=== PATIENT | female | born 1950 | race Caucasian/White ===

== ENCOUNTER → 2016-12-02 | Outpatient (CLI) | payer OTHER ==
[~2016-12-02] VITALS: Ht 154.9 cm; Wt 82.4 kg
[~2016-12-02] MED LIST: IMITREX 25 MG T25 MG PO; LAMISIL250 MG PO; LISINOPRIL-HCT1 EAC2 PO; LISINOPRIL10 MG PO; MOBIC7.5 MG PO; PRAVACHOL20 MG PO; PRAVACHOL40 MG PO; PROGESTERONE100 MG PO; PROGESTERONE200 MG PO
--- NOTE | ~2016-12-02 | HPC ---
[facility] [place] [address] PAIN MANAGEMENT CONSULTATION Name: JAGDISHMAK M Room #: REG [facility] Andrei#: [id number] Admission: 12/02/16 Attend Phys: Rafael Garcia DO Discharge: Date of : 48 Report #: [id number] THIS REPORT FOR: //name// CC: Nick Garcia HISTORY OF PRESENT ILLNESS: The patient is a 66-year-old female, prior seen in the pain clinic for symptomatic cervical radiculopathy. She had #3 cervical epidural injection on 09/02/2016, (#2 on 06/25/2016, and #1 on 05/27/2016). She returns to pain clinic today, noting she has new pain on the left side, neck, shoulder and arm. Chronically, she has had right cervical radicular symptoms. Again, she notes the prior series of epidural injections afforded greater than 70% relief for greater than 2 months. She had significant improvement in cervical range of motion and arm pain. She returns to pain clinic today noting pain is 7/10, exacerbated with looking up and using her right arm. She is using medication and sitting in a hot tub with some efficacy. Medications including meloxicam for anti-inflammation and pain. PHYSICAL EXAMINATION: GENERAL: She is a 66-year-old female, BMI is 34.3 kg/ m. sq. She is having some ongoing issues with headaches, posterior occipital radiating around to the front. VITAL SIGNS: Stable, blood pressure 147/89, pulse 72, respirations 16. EXTREMITIES: Positive Lhermitte's with radiation into the right shoulder and arm and a little bit into the left side. Right deltoid and triceps strength is 3/5, all else is 4/5. Slight decreased right deltoid and triceps reflex. DIAGNOSTIC DATA: We reviewed her MRI findings from 05/05/2016, noting C5-C6 to have an 8 mm central stenosis with uncovertebral hypertrophy, right greater than left. C6-C7 notes similarly 8 mm stenosis with bilateral facet arthropathy. ASSESSMENT: Symptomatic cervical radiculopathy with a component of acute/chronic headache. RECOMMENDATIONS: 1. We will seek authorization for repeat cervical epidural injection under fluoroscopy. It has been greater than 6 months since her prior series started. 2. We will offer the patient prescription for Imitrex 25 mg 1 tablet onset of headache, may repeat in 2 hours. We talked about ongoing headache concerns, risks of Imitrex with cardiac disease, though she has none. She does have a history of hypertension for which she uses lisinopril and dyslipidemia for which she takes Pravachol. The patient was seen for prolonged visit from 13:20-13:45. Greater than 50% of the time spent reviewing medical issues, prior intervention and new issue of ongoing headache which has been chronic, but a little worse recently. No specific photophobia. No nausea, vomiting at this time. No signs of increased [address] [address] PAIN MANAGEMENT CONSULTATION Name: MAK DUBON Room #: REG [facility] Forbes#: [id number] Admission: 12/02/16 Attend Phys: Rafael Garcia DO Discharge: Date of : 48 Report #: [id number] intracranial pressure. Discharged in good stable condition. We will seek authorization for cervical epidural injection under fluoroscopy. <ELECTRONICALLY SIGNED> By: Rafael Garica DO 12/08/16 1031 1634 0515 Rafael Garcia DO /nt
[2016-12-02 13:09] VITALS: BP 147/89
== END | disposition home or self-care (01) ==
LOC: PAIN 07:30
DX: M54.12 Radiculopathy, cervical region (principal); G89.29 Other chronic pain; R51 Headache

== ENCOUNTER → 2016-12-13 | Outpatient (CLI) | payer OTHER ==
[~2016-12-13] VITALS: Ht 154.9 cm; Wt 83.1 kg
--- NOTE | ~2016-12-13 | HPC ---
[facility] [place] [address] PAIN MANAGEMENT CONSULTATION Name: MAK DUBON Antonieta [id number] Admission: 12/13/16 Attend Phys: Rafael Garcia DO Discharge: Date of : 48 Report #: [id number] THIS REPORT FOR: //name// CC: Nick Garcia AMENDED REPORT - SEE BELOW DATE OF SERVICE: 12/13/2016 The patient is a 66-year-old female seen on 12/02/2016 with diagnosis of symptomatic cervical radiculopathy, sought authorization for cervical epidural injection under fluoroscopy today. Returns to the pain clinic today noting pain continues to be problematic in neck, right shoulder and arm, rating as 7/10. Vital signs show modest hypertension 154/92, pulse 75, respirations 18. She wished to proceed with the injection. We discussed. ASSESSMENT: Symptomatic cervical radiculopathy. PROCEDURE: Cervical epidural injection under fluoroscopy. PROCEDURE NOTE: After written and informed consent was obtained including risk of dural puncture, spinal cord trauma, paralysis and increased pain, the patient was taken to the fluoroscopy suite and placed in the prone position, with appropriate abdominal bolstering, neck was flexed, palms under the thighs. Skin was prepped with ChloraPrep. Sterile draping was applied. Skin wheal with 1% Xylocaine was raised. A 22-gauge 3-1/2 inch epidural Tuohy needle was placed via a midline approach at the C7-T1 interspace, advanced under biplanar fluoroscopy using continuous loss of resistance. With appropriate loss of resistance at the expected depth on lateral view, the glass loss of resistance syringe was disconnected. A low volume extension tubing was connected to the needle and a 5 mL syringe. Negative aspiration for cerebrospinal fluid or blood was noted. A 1 mL of Omnipaque was injected which showed spread within the epidural space on biplanar fluoroscopy. This was followed with 80 mg of triamcinolone plus 1 mL of 1.5% preservative Xylocaine. Needle was withdrawn to the interspinous ligament, 0.5 mL of Xylocaine was used to flush the needle. The needle was then completely withdrawn. The area was cleansed. Band-Aid was applied. The patient was allowed to move off the procedure table and ambulated to the recovery room, monitored for an appropriate period of time, discharged in good and stable condition. The patient was discharged in good and stable condition. Follow up in 3 weeks [place] [address] PAIN MANAGEMENT CONSULTATION Name: JAGDISHMAK Fung Room #: REG [facility]#: [id number] Admission: 12/13/16 Attend Phys: Rafael Garcia DO Discharge: Date of : 48 Report #: [id number] AMENDMENT (DEMOGRAPHIC ERROR) Report originally electronically signed: 12/15/16 <ELECTRONICALLY SIGNED> By: Rafael Garcia DO 12/31/16 0811 1341 2209 Rafael Garcia DO /bethel
[2016-12-13 10:07] VITALS: BP 154/92
== END | disposition home or self-care (01) ==
LOC: PAIN 07:22
DX: M54.12 Radiculopathy, cervical region (principal)

== ENCOUNTER → 2017-08-08 | Outpatient (CLI) | payer OTHER ==
[~2017-08-08] VITALS: Ht 154.9 cm; Wt 81.6 kg
[~2017-08-08] MED LIST changes: +COZAAR 50 MG TA50 M2 PO; +HYDROCHLOROTHIA25 M2 PO; +NEURONTIN 300300 M1 PO
--- NOTE | ~2017-08-08 | HPC ---
[facility] [place] [address] PAIN MANAGEMENT CONSULTATION Name: DUBONMAK M [facility] [id number] Admission: 08/08/17 Attend Phys: Rafael Garcia DO Discharge: Date of : 48 Report #: [id number] THIS REPORT FOR: //name// CC: Nick Garcia PROCEDURE: Left L3-L4 transforaminal epidural injection under fluoroscopy. INDICATION: Lumbar radicular pain, left L3-L4 distribution. The patient was referred from her neurosurgeon, Dr. Howard for a request for specific left L3-L4 transforaminal epidural injection today. We will proceed with left L4-L5 transforaminal epidural injection next week. We will evaluate efficacy of overall after both injections. PROCEDURE NOTE: Left L3-L4 transforaminal epidural injection under fluoroscopy. DESCRIPTION OF PROCEDURE NOTE: After both written and informed consent was obtained including risk of spinal cord damage, infection, increased pain and paralysis, the patient agreed to proceed. The patient was taken to the fluoroscopy suite, placed in a prone position with appropriate abdominal bolstering. After sterile prep with ChloraPrep and sterile drape, a skin wheal with 1% Xylocaine was raised. A 22 gauge 4-1/2 inch epidural Tuohy needle was inserted. From an oblique approach into the posterior-superior aspect of the left L3-L4 neural foramen with continuous pressure on the glass syringe plunger for loss of resistance. Glass syringe was filled with 2 cc of 0.1 Xylocaine. The glass loss of resistance syringe was removed. A low volume extension tubing was connected, negative aspiration was accomplished for cerebrospinal fluid or blood. 1 mL of Omnipaque was injected which showed spread both within the epidural space and laterally along the nerve root. This was followed with 80 mg of triamcinolone plus 1 mL of 1.5% preservative-free Xylocaine. Needle was partially withdrawn, 0.5 mL of Xylocaine was injected to clear the needle and the needle was removed. The area was cleansed, band-aid was applied. The patient was allowed to ambulate to the recovery room, discharged in good and stable condition. The patient was monitored for an appropriate period of time and discharged in good and stable condition, noting pain, which is a 5 on admission, was absent on discharge. Again, may have had some spread of local anesthetic overall. We will reevaluate at next visit to ascertain duration of efficacy and steroid effect. If symptoms continue, we will plan on moving forward with a right L4-L5 transforaminal epidural injection at that time. We will plan to move forward with right L4-L5 transforaminal epidural injection, again request from [address] [address] PAIN MANAGEMENT CONSULTATION Name: MAK DUBON Room #: REG [facility] Forbes#: [id number] Admission: 08/08/17 Attend Phys: Rafael Garcia DO Discharge: Date of : 48 Report #: [id number] Neurosurgery, was for consideration for left L3-L4 and L4-L5 transforaminal epidural injections. <ELECTRONICALLY SIGNED> By: Rafael Garcia DO 08/10/17 0811 1228 0024 Rafael Garcia DO /nt
[2017-08-08 10:06] VITALS: BP 144/82
== END ==
LOC: PAIN 07:22
DX: M54.16 Radiculopathy, lumbar region (principal); I10 Essential (primary) hypertension; Z88.2 Allergy status to sulfonamides; Z79.899 Other long term (current) drug therapy; Z72.89 Other problems related to lifestyle

== ENCOUNTER → 2017-08-25 | Outpatient (CLI) | payer OTHER ==
[~2017-08-25] VITALS: Ht 154.9 cm; Wt 81.4 kg
--- NOTE | ~2017-08-25 | HPC ---
[facility] [place] [address] PAIN MANAGEMENT CONSULTATION Name: MAK DUBON Antonieta Room #: REG [facility].#: [id number] Admission: 08/25/17 Attend Phys: Rafael Garcia DO Discharge: Date of : 48 Report #: [id number] THIS REPORT FOR: //name// CC: Nick Garcia The patient is a pleasant 67-year-old female being treated for symptomatic lumbar radiculopathy, prior history of cervical radiculopathy. She had seen a neurosurgeon, Dr. Howard at [facility]. He requested we proceed with left L3-L4 and left L4-L5 transforaminal epidural injections. The patient had left L3-L4 transforaminal epidural injection on 08/08/2017. She notes incremental improvement of baseline pain with pain continues. It is a little more in L4 radicular pattern, lateral aspect of that left leg. To her credit, she has started doing Pilates. She is doing this about 5 times a week. PHYSICAL EXAMINATION: Otherwise unchanged from last visit, subjective pain score is 2-3 on a VAS, vital signs stable as noted in the EMR. PROCEDURE NOTE: Transforaminal epidural injection at L4-L5. PROCEDURE: Transforaminal lumbar epidural injection under fluoroscopy. After both written and informed consent was obtained including risk of spinal cord damage, infection, increased pain and paralysis, the patient agreed to proceed. The patient was taken to the fluoroscopy suite, placed in a prone position with appropriate abdominal bolstering. After sterile prep with ChloraPrep and sterile drape, a skin wheal with 1% Xylocaine was raised. A 22 gauge 4-1/2 inch epidural Tuohy needle was inserted. From an oblique approach into the posterior-superior aspect of the left L4-L5 neural foramen with continuous pressure on the glass syringe plunger for loss of resistance. Glass syringe was filled with 2 cc of 0.1 Xylocaine. The glass loss of resistance syringe was removed. A low volume extension tubing was connected, negative aspiration was accomplished for cerebrospinal fluid or blood. 1 mL of Omnipaque was injected which showed spread both within the epidural space and laterally along the nerve root. This was followed with 80 mg of triamcinolone plus 1 mL of 1.5% preservative-free Xylocaine. Needle was partially withdrawn, 0.5 mL of Xylocaine was injected to clear the needle and the needle was removed. The area was cleansed, band-aid was applied. The patient was allowed to ambulate to the recovery room, discharged in good and stable condition. <ELECTRONICALLY SIGNED> By: Rafael Garcia DO 08/26/17 0819 1216 0647 Rafael Garcia DO /nt
[2017-08-25 10:37] VITALS: BP 128/77
== END | disposition home or self-care (01) ==
LOC: PAIN 06:31
DX: M54.16 Radiculopathy, lumbar region (principal); M54.12 Radiculopathy, cervical region

== ENCOUNTER → 2019-06-12 | Outpatient (CLI) | payer OTHER ==
[~2019-06-12] VITALS: Ht 154.9 cm; Wt 73.9 kg
[~2019-06-12] MED LIST changes: +EXCEDRIN CAPLE1 EACH PO; +VITAMIN D5000 UNIT PO
--- NOTE | ~2019-06-12 | HPC ---
[facility] [place] [address] PAIN MANAGEMENT CONSULTATION Name: MAK DUBON Room #: REG [facility].#: [id number] Admission: 06/12/19 ������������������ Attend Phys: Markus Garcia DO Discharge: ������������������ Date of : 48 Report #: [id number] THIS REPORT FOR: //name// CC: Nick Garcia DATE OF SERVICE: 06/12/2019 CHIEF COMPLAINT: Right low back pain, right buttock and posterolateral thigh pain, radiating all the way to the ankle. HISTORY OF PRESENT ILLNESS: As you know, the patient is a very pleasant 69-year-old female who has returned today in followup visit, having recurrence of low back pain with now right lower extremity pain with paresthesias. She apparently has seen Neurosurgery at [facility], Dr. Howard, for possible surgical options. It was determined that the patient should trial conservative medication management until which time her symptoms do not improve. As you are aware, the patient had an MRI of the lumbar spine obtained 04/29/2017 which showed broad-based central disk extrusion of the L5-S1 level with caudal migration and severe central canal stenosis noted at the L4-L5 level. This is due to facet arthropathy and mild disk bulging. The AP canal diameter at that point was 0.6 cm. She is now experiencing right buttock, posterolateral thigh pain, radiating all the way down to the foot. She denies injury or trauma. She returns today, stating her pain is aching, constant numbness and tingling, exacerbated with activity, improves with medications. She is placing pain anywhere from 8-10/10. ALLERGIES: SULFA. CURRENT MEDICATIONS: Pravastatin 20 mg once a day, progesterone micronized 200 mg once a day, meloxicam 7.5 mg b.i.d., losartan 50 mg per day, hydrochlorothiazide 25 mg per day, Excedrin caplets p.r.n., vitamin D3 5000 units per day. SOCIAL HISTORY: The patient denies tobacco, alcohol, IV or illicit drug use. She is retired. She is accompanied by her present in room today. IMAGING: No new imaging available. PQRS: The patient has known lumbar osteoarthritis. No rheumatoid arthritis. She is placing pain impact score anywhere from 8-10/10. She is a fall risk, but has not had a fall in the last 3 months, but states she is imbalanced at times. She does not use any type of ambulatory device. She is not on blood thinners. She has history of hypertension. She is not on any opioids. She has a low risk for opioid addiction. Pain impact tool 60/70, severe, near complete [address] [address] PAIN MANAGEMENT CONSULTATION Name: DUBONMAK Room #: REG [facility].#: [id number] Admission: 06/12/19 ������������������ Attend Phys: Markus Garcia DO Discharge: ������������������ Date of : 48 Report #: [id number] interference of daily activities secondary to pain. PHYSICAL EXAMINATION: VITAL SIGNS: Blood pressure 140/84, pulse 67, respiratory rate 16 and unlabored, the patient 99% on room air. Height 5 feet 1 inch tall, weight 163 pounds, BMI calculated 30.8. GENERAL: Well-developed, well-nourished, well-hydrated 69-year-old female appearing stated age, pain is rated at 8-10/10. HEENT: Normocephalic, atraumatic. Pupils equal, round, reactive to light. Extraocular muscles are intact. Sclerae nonicteric without injection. NEUROLOGIC: Cranial nerves 2-12 grossly intact. Speech fluent. The patient deemed a good historian. LUNGS: Clear; no wheeze, rhonchi or rales. CARDIOVASCULAR: Regular. No appreciable gallop, no rub. ABDOMEN: Soft, nontender, nondistended, normoactive bowel sounds. EXTREMITIES: Show no clubbing, no cyanosis, and no edema. MUSCULOSKELETAL: Lower extremity strength appears equal and symmetrical, 5/5. There is slight giveaway strength noted on the right when compared to left, with hip flexion, knee extension causing buttock and posterolateral thigh pain, radiating all the way to the ankle. Seated straight leg raising positive right. Supine straight leg raising positive right. Ankle clonus negative. Babinski is negative. Muscle bulk and tone is symmetrical in comparing left lower extremity to right. Intact to light touch from L1 through S2 dermatomes. Palpatory tenderness over the paraspinal musculature of lower lumbar spine. No spinous process tenderness. ASSESSMENT: 1. Symptomatic lumbar radiculopathy. 2. Severe spinal stenosis of lumbar spine. 3. Displacement of lumbar intervertebral disk with radiculopathy. 4. Lumbosacral spondylosis with radiculopathy. 5. Neural foraminal stenosis of lumbar spine. 6. Facet arthropathy of the lumbar spine. 7. Chronic intractable pain. PLAN: 1. The patient returns today in followup visit with continued low back pain, now with right lower extremity pain with paresthesias. When the patient was initially seen by my partner, Dr. Rafael Garica, she was complaining mainly of left lower extremity symptoms with intermittent right lower extremity pain. She is now noticing near complete resolution of left lower extremity symptoms, but the right lower extremity symptoms now at a level of 8-10/10. Her findings do correlate with the L4-L5 central canal stenosis given the bilateral nature of symptoms. We discussed with the patient options for treatment for spinal stenosis of the lumbar spine that is severe in nature. The following was discussed with the patient today. [facility] [address] [place] [address] PAIN MANAGEMENT CONSULTATION Name: MAK DUBON Room #: REG [facility] Forbes#: [id number] Admission: 06/12/19 ������������������ Attend Phys: Markus Garcia DO Discharge: ������������������ Date of : 48 Report #: [id number] We discussed physical therapy, stretching exercise, core strengthening as a treatment option. We discussed medication management, adding neuropathic pain medications and a consistent nonsteroidal anti-inflammatory. We discussed epidural injections under fluoroscopic guidance for which the patient was initially referred to our services. We discussed spinal cord stimulator as a temporizing measure to provide pain relief prior to surgical options and finally surgical decompression of the L4-L5 level and decompressing of the central canal. After reviewing the risks and benefits of all proposed treatment options, the patient chose to move forward with lumbar epidural injection under fluoroscopic guidance. The patient was advised that third libertarian payer restrictions require that authorization be obtained before the patient could undergo a lumbar epidural injection. Authorization could take anywhere from 4-7 working days. We will begin this process immediately and contact the patient once this has been completed, have her return to undergo the first in a series of lumbar epidural injections to address this right lower extremity pain and paresthesias. 2. I have provided the patient with samples of Lyrica 75 mg dose to provide analgesic benefit. I have given the patient 75 mg to begin tonight. If no side effects of sleepiness, disorientation, confusion or mental slowing, she can then take 75 mg b.i.d. This will only be used for a short period of time as we await the approval for the epidural injection. If the patient needs further treatment for medication management, she can follow up with her PCP. 3. We will see the patient back in followup visit once we have achieved authorization for the patient to undergo first in series of lumbar epidural injections to address this lumbar radicular symptoms. We will keep the patient apprised of our progress in obtaining this authorization. 4. We wish to thank Dr. Gaona for the re-referral of the patient to our clinic. We will keep you apprised of her response to treatment as we address lumbar radicular symptoms. Again, we wish to thank you for the opportunity to see the patient in consultation. ��������������������������������������������� ���������������������������������������� By: ��������������������������������������������� 0823 0908 Markus Garcia DO /nt
[2019-06-12 12:59] VITALS: BP 148/84
--- NOTE | 2019-06-12 13:03 | NUR ---
Pain Clinic Assessment: 1. History of Osteoarthritis: NO History of Rheumatoid Arthritis: NO 2. Height: 5 ft. 1 in. 154.9 cm. Weight: 163.0 lb. oz. 73.936 kg. Patient's BMI: 30.8 3. Vital Signs: BP: 148/84 Pulse: 67 Resp: 16 Temp: 02 Sat: 99 ECG Mon: 4. Pain Intensity: 8-10 5. Fall Risk: Dizziness: N Needs help standing or walking: Y Fallen in the last 3 months: N Fall risk comments: 6. Patient on Blood Thinner: None 7. History of Hypertension: Y 8. Opioid Therapy greater than 6 weeks: N Opiate Contract Signed: 9. Risk Assessment Tool Provided: 10. Functional Assessment Tool: 11. Recreational Drug Use: Never Drug Type: Tobacco Use: Never Smoker Tobacco Type: Amount or Packs/day: How Many Years: Alcohol Use: Yes Frequency: Daily Quant: 1-2
== END ==
LOC: PAIN 12:06
DX: M47.27 Other spondylosis with radiculopathy, lumbosacral region (principal); M48.062 Spinal stenosis, lumbar region with neurogenic claudication; M51.16 Intervertebral disc disorders with radiculopathy, lumbar region; G89.4 Chronic pain syndrome; M12.88 Other specific arthropathies, not elsewhere classified, other specified site

== ENCOUNTER → 2019-06-20 | Outpatient (CLI) | payer OTHER ==
[~2019-06-20] VITALS: Ht 154.9 cm; Wt 75.6 kg
--- NOTE | ~2019-06-20 | HPC ---
[address] [address] PAIN MANAGEMENT CONSULTATION Name: MAK DUBON Room #: REG [facility].#: [id number] Admission: 06/20/19 ������������������ Attend Phys: Markus Garcia DO Discharge: ������������������ Date of : 46 Report #: [id number] THIS REPORT FOR: //name// CC: Nick Perez DATE OF SERVICE: 06/20/2019 CHIEF COMPLAINT: Low back pain, right lower extremity pain with paresthesias and intermittent left lower extremity pain with paresthesias. HISTORY OF PRESENT ILLNESS: As you know, the patient is a very pleasant 69-year-old female who returns today in followup visit having received precertification to undergo a lumbar epidural injection under fluoroscopic guidance. At the last visit, we discussed treatment options with the patient to address lumbar radicular symptoms secondary to severe spinal stenosis. She chose to undergo a lumbar epidural injection. We received authorization yesterday for the patient to undergo the procedure. She established today's appointment. She denies new injury or trauma since our last visit. She places pain today at a level of around 4/10, exacerbated with certain activities, improves with rest, relaxation. She returns to undergo a lumbar epidural injection under fluoroscopic guidance. ALLERGIES: SULFA. CURRENT MEDICATIONS: Pravastatin 20 mg per day, progesterone micronized 200 mg once a day, meloxicam 7.5 mg b.i.d., losartan 50 mg per day, hydrochlorothiazide 25 mg per day, Excedrin tablets 1 tab per day, vitamin D 5000 units per day, Lyrica 75 mg p.o. at bedtime. SOCIAL HISTORY: The patient denies tobacco, alcohol, IV or illicit drug use. She is retired, retired years ago. She is accompanied by her , present in room today. IMAGING: No new imaging available. PQRS: The patient has known osteoarthritis of the lumbar spine. No rheumatoid arthritis. She is placing pain score at 4/10. She is not a fall risk, has not had a fall in the last 3 months. She is not on blood thinners, but history of hypertension. She is not on chronic opioids, but does have a low opiate addiction potential based on her assessment tool. Pain impact score is 40/70 indicating moderate interference of daily activities secondary to pain. PHYSICAL EXAMINATION: VITAL SIGNS: Blood pressure 143/84, pulse 57, respiratory rate 16 and [facility] [address] [place] [address] PAIN MANAGEMENT CONSULTATION Name: AMK DUBON [id number] Admission: 06/20/19 ������������������ Attend Phys: Markus Garcia DO Discharge: ������������������ Date of : 48 Report #: [id number] unlabored. The patient is 100% on room air. Height 5 feet 1 inch tall, weight 166.6 pounds, BMI calculated 31.5. GENERAL: Well-developed, well-nourished, well-hydrated 69-year-old female appearing stated age, pain is rated at 4/10. HEENT: Normocephalic, atraumatic. Pupils equal, round, reactive to light. Extraocular muscles are intact. Sclerae nonicteric without injection. NEUROLOGIC: Cranial nerves 2-12 grossly intact. Speech fluent. EXTREMITIES: Show no clubbing, no cyanosis, and no edema. MUSCULOSKELETAL: Lower extremity strength is symmetrical 5/5. Muscle bulk and tone is symmetrical in comparing left lower extremity over right. There is slight giveaway strength noted on the right when compared to the left done with hip flexion, knee extension. Seated straight leg raising is positive on the right. Supine straight leg raising positive on right. Gait is antalgic favoring right lower extremity over left. Stance is slightly forward flexed lumbar spine. ASSESSMENT: 1. Symptomatic lumbar radiculopathy. 2. Severe spinal stenosis of lumbar spine. 3. Displacement of lumbar intervertebral disk with radiculopathy. 4. Lumbosacral spondylosis with radiculopathy. 5. Neuroforaminal stenosis of lumbar spine. 6. Facet arthropathy of the lumbar spine. 7. Chronic intractable pain. PLAN: 1. The patient returns today in followup visit having received precertification to undergo a lumbar epidural injection under fluoroscopic guidance. The patient has been advised of the risks and the benefits of a lumbar epidural injection. These risks include but are not necessarily limited to bleeding, bruising, infection, worsening pain, no relief of pain, also risk of temporary or permanent muscle weakness, temporary or permanent nerve damage, possible paralysis, post-dural puncture headache and . The patient states understood and wished to proceed. 2. No medication changes made at today's visit. The patient will continue current medical therapy as previously prescribed. 3. We will see the patient back in followup visit in 30 days. At that time, review the efficacy of today's epidural injection and determine if next in the series of epidural injections might be warranted. PROCEDURE NOTE: DESCRIPTION OF PROCEDURE: L5-S1 right parasagittal epidural steroid injection under fluoroscopic guidance. This is the first procedure of the first series that the patient is undergoing. [address] [address] PAIN MANAGEMENT CONSULTATION Name: MAK DUBON Room #: REG CLI [facility]#: [id number] Admission: 06/20/19 ������������������ Attend Phys: Markus Garcia DO Discharge: ������������������ Date of : 48 Report #: [id number] After obtaining written consent, the patient was taken back to the fluoroscopy suite, placed in a prone position with pillow under the abdomen to decrease lumbar lordosis. The skin overlying the lumbosacral area was then prepped and draped in aseptic fashion. The L5-S1 vertebral interspace was then identified by AP fluoroscopy. The skin and subcutaneous tissue overlying the target site of injection was anesthetized with 3 mL 1% lidocaine. A 20-gauge 3-1/2 inch Tuohy needle was then advanced under fluoroscopic guidance towards the epidural space using a right paracentral approach. The epidural space was identified using loss of resistance to air technique. After negative aspiration for heme or cerebrospinal fluid, a total of 1 mL of Omnipaque was injected. A lumbar epidurogram was confirmed using both AP and lateral fluoroscopy. After negative aspiration for heme or cerebrospinal fluid, 5 mL of a solution containing 2 mL 40 mg per mL, 80 mg total triamcinolone, 3 mL lidocaine 1% was injected in increments. Contrast spread was noted in posterior epidural space. The needle was then retracted approximately half way and needle tract flushed with 1 mL of lidocaine. Needle was then removed. There were no apparent sensory or motor deficits in the lower extremity following the procedure. A sterile bandage was placed over the injection site. The heart rate, pulse, oximetry and blood pressure were continuously monitored after the procedure. There were no apparent complications. The patient tolerated the procedure well and was carefully escorted to the recovery room in stable condition. There were no apparent complications. After meeting discharge criteria, the patient was then discharged home. ��������������������������������������������� ���������������������������������������� By: ��������������������������������������������� [id number] Markus Garcia DO /nt
[2019-06-20 08:29] VITALS: BP 143/84
--- NOTE | 2019-06-20 08:37 | NUR ---
Pain Clinic Assessment: 1. History of Osteoarthritis: NO History of Rheumatoid Arthritis: NO 2. Height: 5 ft. 1 in. 154.9 cm. Weight: 166.6 lb. oz. 75.569 kg. Patient's BMI: 31.5 3. Vital Signs: BP: 143/84 Pulse: 57 Resp: 16 Temp: 02 Sat: 100 ECG Mon: 4. Pain Intensity: 4 5. Fall Risk: Dizziness: N Needs help standing or walking: N Fallen in the last 3 months: N Fall risk comments: 6. Patient on Blood Thinner: None 7. History of Hypertension: Y 8. Opioid Therapy greater than 6 weeks: N Opiate Contract Signed: 9. Risk Assessment Tool Provided: 10. Functional Assessment Tool: 11. Recreational Drug Use: Never Drug Type: Tobacco Use: Never Smoker Tobacco Type: Amount or Packs/day: How Many Years: Alcohol Use: Yes Frequency: Quant:
== END | disposition home or self-care (01) ==
LOC: PAIN 06-19 06:59
DX: M47.27 Other spondylosis with radiculopathy, lumbosacral region (principal); M51.16 Intervertebral disc disorders with radiculopathy, lumbar region; M48.061 Spinal stenosis, lumbar region without neurogenic claudication; M99.73 Connective tissue and disc stenosis of intervertebral foramina of lumbar region; M12.88 Other specific arthropathies, not elsewhere classified, other specified site; G89.29 Other chronic pain; I10 Essential (primary) hypertension; Z88.2 Allergy status to sulfonamides; Z79.899 Other long term (current) drug therapy; Z98.890 Other specified postprocedural states

== ENCOUNTER → 2019-07-31 | Outpatient (CLI) | payer OTHER ==
[~2019-07-31] VITALS: Ht 154.9 cm; Wt 73.7 kg
[~2019-07-31] MED LIST changes: +MAGOX 400400 MG PO; +UNICOMPLEX M TA1 TA1 PO
--- NOTE | ~2019-07-31 | HPC ---
[address] [address] PAIN MANAGEMENT CONSULTATION Name: MAK DUBON Room #: REG [facility].#: [id number] Admission: 07/31/19 Attend Phys: Markus Garcia DO Discharge: Date of : 46 Report #: [id number] THIS REPORT FOR: //name// CC: Nick Perez DO DATE OF SERVICE: 07/31/2019 CHIEF COMPLAINT: Low back pain, right lower extremity pain with paresthesias. HISTORY OF PRESENT ILLNESS: As you know, the patient is a very pleasant 69-year-old female who returns today in followup visit to begin the authorization process to undergo next in the series of lumbar epidural injections. The patient returns today with pain level of 7/10. She indicates that the previous epidural injection provided greater than 50% improvement in overall pain that appears to be ongoing. She denies any new injury or trauma that may have led to symptom progression. She returns today in followup visit stating pain is aching and constant in sensation, exacerbated with activity, lying down, improves with medications and the previous epidural injection. She returns today in followup visit to begin the authorization process to undergo next in the series of epidural injections to address recurrent 7/10 pain. ALLERGIES: SULFA. CURRENT MEDICATIONS: Magnesium oxide 400 mg once a day, multivitamin 1 tab per day, meloxicam 7.5 mg once a day, cholecalciferol 5000 units once a day, Excedrin caplets every 6 hours p.r.n. headache, hydrochlorothiazide 25 mg per day, losartan 50 mg per day, progesterone 200 mg once a day, pravastatin 20 mg per day. SOCIAL HISTORY: The patient denies tobacco, alcohol, IV or illicit drug use. She is retired, retired years ago, accompanied by her present in room today. IMAGING: No new imaging available. PQRS: The patient has known osteoarthritic changes of the lumbar spine. No rheumatoid arthritis. She is placing pain today at 7/10. She is not a fall risk, has not had a fall in last 3 months. She is not on blood thinners, but is treated for hypertension. She has been on opioids in the past, but nothing long-term. She has had moderate risk for opioid addiction based on our addiction assessment tool. She is placing pain impact score 45/70, moderate interference of daily activities secondary to pain. [address] [address] PAIN MANAGEMENT CONSULTATION Name: MAK DUBON [facility] [id number] Admission: 07/31/19 Attend Phys: Markus Garcia DO Discharge: Date of : 48 Report #: [id number] PHYSICAL EXAMINATION: VITAL SIGNS: Blood pressure 151/82, pulse 64, respiratory rate 16 and unlabored. The patient is 100% on room air. Height 5 feet 1 inch tall, weight 162.4 pounds, BMI calculated 30.7. GENERAL: Well-developed, well-nourished, well-hydrated 69-year-old female appearing stated age, pain is rated today at 7/10. HEENT: Normocephalic, atraumatic. Pupils equal, round and reactive to light. Extraocular muscles are intact. NEUROLOGIC: Speech fluent. The patient deemed a good historian. EXTREMITIES: Show no clubbing, no cyanosis and no edema. MUSCULOSKELETAL: Lower extremity strength is symmetrical 5/5. Slight giveaway strength noted on the right compared to left with hip flexion and knee extension. She has straight leg raising positive on the right. Supine straight leg raising positive on the right. Gait mildly antalgic favoring right lower extremity. ASSESSMENT: 1. Symptomatic lumbar radiculopathy. 2. Severe and progressively worsening spinal stenosis of the lumbar spine. 3. Displacement of lumbar intervertebral disk with radiculopathy. 4. Lumbosacral spondylosis with radiculopathy. 5. Neural foraminal stenosis of the lumbar spine. 6. Facet arthropathy of the lumbar spine. 7. Degeneration of lumbar spine. 8. Chronic intractable pain. PLAN: 1. The patient returns today in followup visit having noted greater than 50% improvement in overall pain with previous lumbar epidural injection. Today, the patient is reporting pain score 7/10. She has requested next in the series of epidural injections in hopes of building on the success of previous intervention. The patient was advised that third libertarian payer restrictions require that authorization be obtained before the patient could undergo this procedure. We will begin the authorization process immediately. 2. The patient was advised authorization could take anywhere from 4-7 working days, begin this process immediately. Once we have achieved authorization, we will contact the patient to return to undergo a lumbar epidural injection under fluoroscopic guidance to address residual lumbar radicular pain, for which she gives pain level of 7/10. We will contact the patient once we have this authorization. 3. No medication changes made at today's visit. The patient will continue current medical therapy as previously prescribed. 4. We will see the patient back in followup visit once we have achieved [facility] [address] [place] [address] PAIN MANAGEMENT CONSULTATION Name: MAK DUBON Room #: REG [facility]#: [id number] Admission: 07/31/19 Attend Phys: Markus Garcia DO Discharge: Date of : 46 Report #: [id number] authorization to undergo the next in the series of lumbar epidural injections under fluoroscopic guidance to build on success of previous injection. By: [id number] Markus Garcia DO /nt
[2019-07-31 10:04] VITALS: BP 151/82
--- NOTE | 2019-07-31 10:21 | NUR ---
Pain Clinic Assessment: 1. History of Osteoarthritis: NO History of Rheumatoid Arthritis: NO 2. Height: 5 ft. 1 in. 154.9 cm. Weight: 162.4 lb. oz. 73.664 kg. Patient's BMI: 30.7 3. Vital Signs: BP: 151/82 Pulse: 64 Resp: 16 Temp: 02 Sat: 100 ECG Mon: 4. Pain Intensity: 7 5. Fall Risk: Dizziness: N Needs help standing or walking: N Fallen in the last 3 months: N Fall risk comments: 6. Patient on Blood Thinner: None 7. History of Hypertension: Y 8. Opioid Therapy greater than 6 weeks: N Opiate Contract Signed: 9. Risk Assessment Tool Provided: 10. Functional Assessment Tool: 11. Recreational Drug Use: Never Drug Type: Tobacco Use: Never Smoker Tobacco Type: Amount or Packs/day: How Many Years: Alcohol Use: Yes Frequency: Quant:
== END ==
LOC: PAIN 07-25 14:09
DX: M47.26 Other spondylosis with radiculopathy, lumbar region (principal); M51.16 Intervertebral disc disorders with radiculopathy, lumbar region; M48.062 Spinal stenosis, lumbar region with neurogenic claudication; M12.88 Other specific arthropathies, not elsewhere classified, other specified site; G89.4 Chronic pain syndrome; Z88.2 Allergy status to sulfonamides; Z79.899 Other long term (current) drug therapy

== ENCOUNTER → 2019-08-29 | Outpatient (CLI) | payer OTHER ==
[~2019-08-29] VITALS: Ht 154.9 cm; Wt 73.3 kg
[2019-08-29 09:18] VITALS: BP 168/99
--- NOTE | 2019-08-29 09:23 | NUR ---
Pain Clinic Assessment: 1. History of Osteoarthritis: NO History of Rheumatoid Arthritis: NO 2. Height: 5 ft. 1 in. 154.9 cm. Weight: 161.6 lb. oz. 73.301 kg. Patient's BMI: 30.5 3. Vital Signs: BP: 168/99 Pulse: 72 Resp: 14 Temp: 02 Sat: 100 ECG Mon: 4. Pain Intensity: 4 5. Fall Risk: Dizziness: N Needs help standing or walking: N Fallen in the last 3 months: N Fall risk comments: 6. Patient on Blood Thinner: None 7. History of Hypertension: Y 8. Opioid Therapy greater than 6 weeks: N Opiate Contract Signed: 9. Risk Assessment Tool Provided: MOD 10. Functional Assessment Tool: 11. Recreational Drug Use: Never Drug Type: Tobacco Use: Never Smoker Tobacco Type: Amount or Packs/day: How Many Years: Alcohol Use: Yes Frequency: Quant:
--- NOTE | 2019-09-11 08:01 | HPC ---
[facility] [address] [place] [address] PAIN MANAGEMENT CONSULTATION Name: MAK DUBON Room #: REG [facility].#: [id number] Admission: 08/29/19 Attend Phys: Markus Garcia DO Discharge: Date of : 46 Report #: [id number] THIS REPORT FOR: //name// CC: Nick Perez DATE OF SERVICE: 08/29/2019 CHIEF COMPLAINT: Low back pain, right lower extremity pain and paresthesias. HISTORY OF PRESENT ILLNESS: As you know, the patient is a very pleasant 69-year-old female returning in followup visit to undergo next in the series of lumbar epidural injections under fluoroscopic guidance. Most recent injection provided improvement in symptoms of greater than 50%. She returns today in followup visit to undergo next in the series of epidural injections in hopes of improving on previous success. She denies new injury or trauma which may have changed the patient's ongoing pain. ALLERGIES: SULFA. CURRENT MEDICATIONS: See chart. SOCIAL HISTORY: The patient denies tobacco, alcohol, IV or illicit drug use. She is retired, retired years ago, unaccompanied today. IMAGING: No new imaging available. PQRS: The patient has known arthritic changes of the lumbar spine. No rheumatoid arthritis. She is placing pain today 03/07. She is not a fall risk, has not had a fall in the last 3 months. She is not on blood thinners. She is treated for hypertension. She is not on chronic opioids, but does have a moderate opioid addiction potential. Placing pain impact score of 45/70 indicating moderate interference to daily activities secondary to pain. PHYSICAL EXAMINATION: VITAL SIGNS: Blood pressure 168/99, pulse is 72, respiratory rate 14 and unlabored. The patient is 100% on room air. Height 5 feet 1 inch tall, weight 161.6 pounds, BMI calculated 30.5. GENERAL: Well-developed, well-nourished, well-hydrated 69-year-old female appearing stated age, placing pain today at 4/10. HEENT: Normocephalic, atraumatic. Pupils equal, round, reactive to light. EXTREMITIES: Show no clubbing, no cyanosis, and no edema. MUSCULOSKELETAL: Lower extremity strength equal and symmetrical 5/5, intact to light touch from L1 through S2 dermatomes. Seated straight leg raising negative. Supine straight leg raising positive on the right. [facility] [address] [place] [address] PAIN MANAGEMENT CONSULTATION Name: JAGDISHMAK M [facility] [id number] Admission: 08/29/19 Attend Phys: Markus Garcia DO Discharge: Date of : 48 Report #: [id number] ASSESSMENT: 1. Symptomatic lumbar radiculopathy. 2. Severe and progressively worsening spinal stenosis of the lumbar spine. 3. Displacement of lumbar intervertebral disk with radiculopathy. 4. Lumbosacral spondylosis with radiculopathy. 5. Neural foraminal stenosis of the lumbar spine. 6. Facet arthropathy of the lumbar spine. 7. Degeneration of the lumbar spine. 8. Chronic intractable pain. PLAN: 1. The patient returns today in followup visit requesting to undergo next in the series of epidural injections under fluoroscopic guidance. She reports good efficacy of greater than 50% improvement in overall pain with the previous injection. She returns today to undergo next in the series. She has been advised risks and benefits of the procedure, states understood and wished to proceed. 2. No medication changes made at today's visit. The patient will continue current medical therapy as prior prescribed. 3. We will see the patient back in followup visit on an as needed basis. DESCRIPTION OF PROCEDURE: L5-S1 right paramedian epidural steroid injection under fluoroscopic guidance. After obtaining written consent, the patient was taken back to fluoroscopy suite, placed in prone position with pillow under abdomen to decrease the lumbar lordosis. Skin overlying lumbosacral area then prepped and draped in aseptic fashion. The L5-S1 vertebral interspace identified by AP fluoroscopy. Skin and subcutaneous tissue overlying target site injection anesthetized with 3 mL of 1% lidocaine. A 20-gauge 3-1/2 inch Tuohy needle advanced under fluoroscopic guidance towards the epidural space using right paramedian approach. Epidural space identified using loss of resistance to air technique. After negative aspiration for heme or cerebrospinal fluid, 1 mL of Omnipaque injected. Lumbar epidurogram confirmed using both AP and lateral fluoroscopy. After negative aspiration for heme or cerebrospinal fluid, 5 mL of a solution containing 2 mL 40 mg per mL, 80 mg total triamcinolone along with 3 mL of lidocaine 1% injected slowly. Needle then retracted approximately half way, flushed with 1 mL of 1% lidocaine and then removed. Sterile bandage placed over injection site. No new motor deficits present in lower extremity following procedure. The patient tolerated the procedure well, carefully escorted to recovery room in [facility] [address] [place] [address] PAIN MANAGEMENT CONSULTATION Name: MAK DUBON Room #: REG [facility]#: [id number] Admission: 08/29/19 Attend Phys: Markus Garcia DO Discharge: Date of : 48 Report #: [id number] stable condition. No apparent complications. After meeting discharge criteria, the patient discharged home. <ELECTRONICALLY SIGNED> By: Markus Garcia DO 09/11/19 0801 [id number] Markus Garcia DO /nt
== END | disposition home or self-care (01) ==
LOC: PAIN 06:55
DX: M51.16 Intervertebral disc disorders with radiculopathy, lumbar region (principal); M48.061 Spinal stenosis, lumbar region without neurogenic claudication; M47.27 Other spondylosis with radiculopathy, lumbosacral region; M99.73 Connective tissue and disc stenosis of intervertebral foramina of lumbar region; M12.88 Other specific arthropathies, not elsewhere classified, other specified site; G89.29 Other chronic pain; I10 Essential (primary) hypertension; Z88.2 Allergy status to sulfonamides; Z79.899 Other long term (current) drug therapy